=== PATIENT | female | born 1945 | race Caucasian/White ===

== ENCOUNTER → 2017-02-24 | Outpatient (CLI) | payer MEDICARE, OTHER ==
[~2017-02-24] MED LIST: AMOXICILLIN 50500 MG PO; ASPIR-LOW81 MG PO; ASPIR-LOX325 MG PO; ASPIRIN E.C. 8181 MG PO; CALTRATE-600 W600 MG PO; CIPRO 500MG TA500 MG PO; CIPRO250 MG PO; FLONASE NASAL S16 GM NS; FOSAMAX 70MG TA70 MG PO; HCTZ 25MG TAB25 MG PO; LISINOPRIL5 MG PO; PATANOL OPHTHALM5 ML OU; PYRIDIUM 100MG100 MG PO; PYRIDIUM200 M1 PO; SEPTRA DS 8001 TAB PO; SYNTHROID0.05 MG/TA PO; ZOCOR 20MG20 MG PO; ZYRTEC 10MG; ZYRTEC 10MG10 MG PO
== END ==
LOC: MC.RAD 11:32
DX: Z12.31 Encounter for screening mammogram for malignant neoplasm of breast (principal)

== ENCOUNTER 2017-05-18 09:57 | Emergency (ER) | payer MEDICARE, OTHER ==
[~2017-05-18] VITALS: Ht 165.1 cm; Wt 90.0 kg
[2017-05-18 10:53] LABS: COLLECTION METHOD CLEAN CATCH
[2017-05-18 10:58] LABS: PH 7 (5-8); SQUAMOUS EPITHELIAL None Seen /hpf; URINE APPEARANCE Clear; URINE BACTERIA None Seen /hpf; URINE BILIRUBIN Negative (NEGATIVE); URINE BLOOD 1+ (NEGATIVE); URINE COLOR Straw; URINE GLUCOSE Negative (NEGATIVE); URINE KETONE Negative (NEGATIVE); URINE LEUKOCYTE ESTERASE Negative (NEGATIVE); URINE NITRATE Negative (NEGATIVE); URINE PROTEIN(semi-quant) Negative (NEGATIVE); URINE RBC 0-2 /hpf; URINE UROBILINOGEN Negative (NEGATIVE)
[2017-05-18 11:07] VITALS: BP 148/81; PULSE 80
== END 2017-05-18 11:36 | disposition home or self-care (01) ==
LOC: COL.ER 09:57
PROVIDERS: Nurse Practitioner
DX: R30.0 Dysuria (principal); I10 Essential (primary) hypertension; E07.9 Disorder of thyroid, unspecified; M81.0 Age-related osteoporosis without current pathological fracture; Z88.6 Allergy status to analgesic agent; Z98.890 Other specified postprocedural states; Z79.51 Long term (current) use of inhaled steroids; Z79.82 Long term (current) use of aspirin

== ENCOUNTER → 2017-07-01 | Outpatient (CLI) | payer MEDICARE, OTHER | LOC: COL.RAD 09:49 | DX: R30.0 Dysuria (principal) ==

== ENCOUNTER → 2018-04-17 | Outpatient (CLI) | payer MEDICARE, OTHER | LOC: MC.RAD 09:01 | DX: Z12.31 Encounter for screening mammogram for malignant neoplasm of breast (principal) ==